=== PATIENT | female | born 1970 | race Caucasian/White ===

== ENCOUNTER 2016-04-03 12:12 | Emergency (ER) | payer MEDICAID ==
[2016-04-03 12:27] VITALS: TEMP 97.5; BMI 23.9
--- NOTE | 2016-04-03 12:36 | EDPRACDOC ---
- General Stated Complaint: LEFT LOWER ARM PAIN Time Seen by Provider: 04/03/16 12:31 Information Source: Patient - History of Present Illness Onset: yesterday HPI: Pt states she tripped while trying to sit on picnic table and L forearm hit top edge of table. C/o L forearm and elbow pain. R hand dominate. Pt states numbness in L fingers. Denies shoulder, wrist pain Pain Severity: Reports: Moderate Injuries/Pain Location: Reports: upper extremity Reason for Fall: Reports: tripped Loss of Consciousness: no loss of consciousness Associated Symptoms (Fall): Reports: denies symptoms Allergies/Adverse Reactions: Allergies diphenhydramine HCl [From Benadryl] Allergy (Intermediate, Verified 04/03/16 12: 40) Hives* ketorolac tromethamine [From Toradol] Allergy (Verified 04/03/16 12:40) Headache TRAMADOL Allergy (Uncoded 04/03/16 12:40) Hives* Home Medications: Ambulatory Orders Omeprazole [Prilosec] 40 mg PO QAM 12/06/12 Rizatriptan Benzoate [Maxalt] 10 mg PO DIR PRN 07/31/14 Acetaminophen Tablet [TYLENOL Tablet] 650 mg PO Q6H PRN #10 tablet 12/28/15 Benzonatate [Tessalon] 100 mg PO TID PRN #20 capsule 12/28/15 Bisacodyl [Dulcolax] 10 mg PO DAILY PRN #30 tablet 12/28/15 Fluticasone/Salmeterol [Advair 250-50] 1 puff INH BID #1 inhaler 12/28/15 Oxycodone Immediate Release [Oxycodone Immediate Release (OxyIR)] 10 mg PO Q4H PRN #30 tablet 12/28/15 Rivaroxaban [Xarelto] 15 mg PO BID 21 Days 12/28/15 Cyclobenzaprine HCl [Flexeril] 10 mg PO TID PRN #20 tablet 01/11/16 Insulin Glargine [Lantus Pen] 70 units SQ HS 01/11/16 Hydrocodone Bit/Acetaminophen [Lortab 5/325] 1 tab PO Q6H PRN #10 tab 04/03/16 ED Past Medical History - History Reviewed Yes Nurses notes reviewed and agree except as marked - Patient Medical History Neurological History: Reports: Seizures (15 yrs since last) Cardiac History: Reports: Hypertension, Hypercholesterolemia Respiratory History: Reports: Asthma, COPD, Pneumonia (04/2014), Emphysema GI/ History: Reports: Renal Disease, Renal Failure, Urinary Tract Infection Psychological History: Reports: Anxiety, Substance Use Disorder. Denies: Depression Systemic History: Reports: Cancer (cervical), Diabetes (IDDM) Additional Past Medical History: Chronic Back Pain Surgical History: Reports: Cholecystectomy - Family Medical History Reports: Hypertension (dad), Diabetes (dad), Cardiac Disorders (dad) - Social Medical History Smoking Status: Heavy tobacco smoker (5 or more cigarettes/day or daily pipe/ cigar) Social History: Reports: Substance Use Disorder ETOH: None EDM Review of Systems - Review of Systems Constitutional: No Symptoms Reported. negative: Fever, Chills, Weakness, Fatigue, Loss of Appetite Respiratory: No Symptoms Reported. negative: Cough, Brassy Cough, Barky Cough, Shortness of Breath, Wheezing, Hemoptysis Cardiovascular: No Symptoms Reported. negative: Chest Pain, Palpitations, Syncope, Edema, Orthopnea, PND, Skin Mottling, Cyanosis Neurological: Numbness Musculoskeletal: Elbow, Forearm Integumentary: Bruising Allergic/Immunologic: No Symptoms Reported. negative: Hives, Itching Hematologic: No Symptoms Reported. negative: Lymphadenopathy, Easy Bruising, Easy Bleeding Psychiatric: No Symptoms Reported. negative: Anxiety, Depression, Hallucinations, Insomnia, Suicidal - Physical Exam Constitutional: Alert Oriented to: Time, Person, Place Last recorded Vital Signs: Last Vital Signs Temp 97.5 F 04/03/16 12:24 Pulse 105 04/03/16 12:24 Resp 20 04/03/16 12:24 BP 157/89 04/03/16 12:24 Pulse Ox 98 04/03/16 12:24 Oxygen Pulse Oxygen Saturation 98 O2 Device Room Air Oxygen Flow Rate Fraction of Inspired Oxygen ( FIO2) - HEENT Head: Normal ( normocephalic) - Respiratory/Cardiovascular Respiratory: Normal - CTA (BBS clear to auscultation without adventitious sounds ) Cardiovascular: Normal (RRR without murmur, gallop or rub) - Musculoskeletal Back: Normal (Non-Tender) Extremities: Normal (Normal tone, Pulses 2+ No cyanosis or edema, FROM) - Integumentary Skin: Normal, Warm, Dry Lymphatics: Normal (no adenopathy) - Neurologic Memory Impaired: Normal Motor Function: Normal (Normal tone, Pulses 2+ No cyanosis or edema, FROM) Mood Description: Normal Perception: Normal ED Injury/Fall Exam - Physical Exam Head Injury: no evidence of injury Extremity Exam: tenderness (L forearm contusion with tenderness proximal posterior ) Skin: Normal, Warm, Dry - Concha Coma Score Best Eye Response (Collins): (4) open spontaneously Best Verbal Response (Collins): (5) oriented Best Motor Response (Concha): (6) obeys commands Collins Total: 15 - Differential Diagnosis Contusion, Fracture, Mechanical Fall, Sprain, Strain - Diagnostic Imaging Elbow Image interpreted by: Radiologist IMPRESSION: Negative. Forearm Image interpreted by: Radiologist IMPRESSION: Soft tissue swelling without acute osseous abnormality identified. Decision Time to Discharge: 13:22 - Departure Disposition: Home Condition: Good Final Diagnosis: Contusion of left forearm Qualifiers: Encounter type: initial encounter Qualified Code(s): S50.12XA - Contusion of left forearm, initial encounter Sprain of left elbow Qualifiers: Encounter type: initial encounter Qualified Code(s): S53.402A - Unspecified sprain of left elbow, initial encounter Instructions: Contusion in Adults (ED), Elbow Sprain (ED) Education/Counseling Given To: Patient Education/Counseling Given Regarding: Diagnosis, Treatment, Follow Up Referrals: Rebel Sr MD [Primary Care Provider] - One Week Prescriptions: Hydrocodone Bit/Acetaminophen [Lortab 5/325] 1 tab PO Q6H PRN #10 tab PRN Reason: Pain Additional Instructions: Return for worse or different symptoms.
--- NOTE | 2016-04-03 13:20 | DIRPT ---
CLINICAL DATA: Fall, left forearm pain EXAM: LEFT ELBOW - COMPLETE 3+ VIEW COMPARISON: None. FINDINGS: Four views of left elbow submitted. No acute fracture or subluxation. No radiopaque foreign body. No posterior fat pad sign. IMPRESSION: Negative. Electronically Signed By: Dav García M.D. On: 04/03/2016 13:17
--- NOTE | 2016-04-03 13:21 | DIRPT ---
CLINICAL DATA: Fell while trying to sit at a picnic table. Left forearm pain with numbness in the fingers. Initial encounter. EXAM: LEFT FOREARM - 2 VIEW COMPARISON: None. FINDINGS: The radius and ulna appear intact without fracture identified. The elbow and wrist are located. No destructive osseous lesion is identified. There is mild soft tissue swelling involving the dorsal aspect of the forearm. No radiopaque foreign body. IMPRESSION: Soft tissue swelling without acute osseous abnormality identified. Electronically Signed By: Vu Mcdonald M.D. On: 04/03/2016 13:19
[2016-04-03 13:34] VITALS: BP 155/93; PULSE 95
== END 2016-04-03 13:35 | disposition home or self-care (01) ==
LOC: EDMC 12:12
DX: S50.12XA Contusion of left forearm, initial encounter (principal); S53.402A Unspecified sprain of left elbow, initial encounter; W18.49XA Other slipping, tripping and stumbling without falling, initial encounter; Y93.89 Activity, other specified
CPT/HCPCS: 99283